=== PATIENT | male | born 2005 | race African-American/Black ===

== ENCOUNTER 2024-08-27 15:17 | Emergency (ER) | payer MEDICAID ==
[~2024-08-27] VITALS: Ht 180.3 cm; Wt 72.0 kg
[2024-08-27 15:24] VITALS: O2SAT 100
[2024-08-27] MEDS: HYDROCODONE/ACETAMINOPHEN 5/325MG TABLET PO ONE (17:50)
[2024-08-27] MEDS: HYDROXYZINE 25MG TABLET PO ONE (19:36)
[2024-08-27] MEDS ORDERED: NAPR-1486 MT (20:47)
[2024-08-27 21:05] VITALS: BP 153/77; PULSE 67; RESP 17; TEMP 36.9; O2SAT 99
== END 2024-08-27 21:05 | disposition home or self-care (01) ==
LOC: ER 15:17
DX: H54.61 Unqualified visual loss, right eye, normal vision left eye (principal); R51.9 Headache, unspecified
CPT/HCPCS: 99284